=== PATIENT | male | born 1995 | race Hispanic/Latino ===

== ENCOUNTER 2019-03-09 22:33 | Emergency (ER) | payer BC ==
--- NOTE | 2019-03-09 23:39 | ER ---
Nurse's Notes [facility] Name: William Herrera Age: 23 yrs Sex: Male : 1995 Arrival Date: 03/09/2019 Time: 22:37 Bed 28 Private MD: Diagnosis: Low back pain Presentation: 03/09 22:42 Presenting complaint: Patient states: Lower back pain for at least a month, hurts to la1 sit. Denies sexual dysfunction, loss of continence. Transition of care: patient was not received from another setting of care. Onset of symptoms was March 09, 2019. Risk Assessment: Do you want to hurt yourself or someone else? Patient reports no desire to harm self or others. Initial Sepsis Screen: Does the patient meet any 2 criteria? No. Patient's initial sepsis screen is negative. Does the patient have a suspected source of infection? No. Patient's initial sepsis screen is negative. Care prior to arrival: None. 22:42 Method Of Arrival: Ambulatory la1 22:42 Acuity: RENETTA 5 la1 Historical: - Allergies: 22:43 No Known Allergies; la1 - PMHx: 22:43 None; la1 - Immunization history:: Adult Immunizations up to date. - Social history:: Smoking status: Patient/guardian denies using tobacco. - Ebola Screening: : No symptoms or risks identified at this time. Screenin:22 Abuse screen: none noted. Nutritional screening: No deficits noted. Tuberculosis jl3 screening: No symptoms or risk factors identified. Fall Risk None identified. Assessment: 23:12 General: Appears in no apparent distress. Behavior is calm. General: Pt states lower jl3 back back >1 month. 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 Taking Ibuprofen 800mg for pain, last at 1600 today (02/27/19). Pain: Complains of pain in back Quality of pain is described as aching. Neuro: No deficits noted. Cardiovascular: No deficits noted. Respiratory: No deficits noted. GI: No deficits noted. : No deficits noted. EENT: No deficits noted. Derm: No deficits noted. Musculoskeletal: Reports pain in back since > 1 month. 23:55 Reassessment: No further c/o pain. jl3 Vital Signs: 22:45 BP 158 / 90; Pulse 87; Resp 16; Temp 97.3; Pulse Ox 99% on R/A; Weight 156.49 kg; la1 Height 6 ft. 4 in. (193.04 cm); Pain 8/10; 23:59 BP 142 / 82; Pulse 80; Resp 16; Pulse Ox 100% ; Pain 3/10; jl3 22:45 Body Mass Index 41.99 (156.49 kg, 193.04 cm) la1 ED Course: 22:37 Patient arrived in ED. mr 22:43 Triage completed. la1 22:43 Arm band placed on right wrist. la1 22:58 Oc Almanzar, RN is Primary Nurse. jl3 23:04 Leno Brennan MD is Attending Physician. kdr 23:22 Patient has correct armband on for positive identification. jl3 23:57 No provider procedures requiring assistance completed. Patient did not have IV access jl3 during this emergency room visit. Administered Medications: 23:53 Drug: Flexeril 10 mg Route: PO; jl3 23:58 Follow up: Response: No adverse reaction jl3 23:53 Drug: Shelly 10 mg-325 mg 1 tabs Route: PO; jl3 23:58 Follow up: Response: No adverse reaction jl3 23:53 Drug: predniSONE 60 mg Route: PO; jl3 23:58 Follow up: Response: No adverse reaction jl3 23:53 Drug: Pepcid 20 mg Route: PO; jl3 23:58 Follow up: Response: No adverse reaction jl3 Outcome: 23:38 Discharge ordered by . kdr 23:57 Discharged to home ambulatory. jl3 23:57 Condition: good 23:57 Discharge instructions given to patient, family, Prescriptions given X 4. 23:59 Patient left the ED. jl3 Signatures: Leno Brennan MD MD kdr Rivera, Mary Kushal Velazquez, RN RN la1 Oc Almanzar, THOMAS RN jl3
--- NOTE | 2019-03-09 23:39 | EDPHYS ---
Physician Documentation [facility] Name: William Herrera Age: 23 yrs Sex: Male : 1995 Arrival Date: 03/09/2019 Time: 22:37 Bed 28 Private MD: ED Physician Leno Brennan HPI: 03/10 02:05 This 23 yrs old Male presents to ER via Ambulatory with complaints of Low Back kdr Pain. 02:05 The patient presents with pain that is chronic, with no known mechanism of injury, and kdr decreased range of motion. The symptoms are located in the low back. The pain radiates to the left hamstring and posterior aspect of left knee. The problem was sustained from unknown cause. Onset: The symptoms/episode began/occurred gradually, 1 month(s) ago. Modifying factors: The patient symptoms are alleviated by nothing, the patient symptoms are aggravated by standing, walking. Associated signs and symptoms: The patient has no apparent associated signs or symptoms. Severity of symptoms: At their worst the symptoms were moderate, in the emergency department the symptoms are unchanged. The patient has not experienced similar symptoms in the past. The patient has not recently seen a physician. Historical: - Allergies: 03/09 22:43 No Known Allergies; la1 - PMHx: 22:43 None; la1 - Immunization history:: Adult Immunizations up to date. - Social history:: Smoking status: Patient/guardian denies using tobacco. - Ebola Screening: : No symptoms or risks identified at this time. ROS: 03/10 02:05 Constitutional: Negative for fever, chills, and weight loss, Eyes: Negative for injury, kdr pain, redness, and discharge, ENT: Negative for injury, pain, and discharge, Neck: Negative for injury, pain, and swelling, Cardiovascular: Negative for chest pain, palpitations, and edema, Respiratory: Negative for shortness of breath, cough, wheezing, and pleuritic chest pain, Abdomen/GI: Negative for abdominal pain, nausea, vomiting, diarrhea, and constipation, : Negative for injury, bleeding, discharge, and swelling, MS/Extremity: Negative for injury and deformity, Skin: Negative for injury, rash, and discoloration, Neuro: Negative for headache, weakness, numbness, tingling, and seizure activity. Psych: Negative for depression, anxiety, suicide ideation, homicidal ideation, and hallucinations, Allergy/Immunology: Negative for hives, rash, and allergies, Endocrine: Negative for neck swelling, polydipsia, polyuria, polyphagia, and marked weight changes, Hematologic/Lymphatic: Negative for swollen nodes, abnormal bleeding, and unusual bruising. Back: Positive for pain at rest, pain with movement, of the lumbar area and left low back. Exam: 02:05 Constitutional: This is a well developed, well nourished patient who is awake, alert, kdr and in no acute distress. Back: No spinal tenderness. No costovertebral tenderness. Full range of motion. 02:05 Back: pain, that is mild, of the lumbar area and left low back. Vital Signs: 03/09 22:45 BP 158 / 90; Pulse 87; Resp 16; Temp 97.3; Pulse Ox 99% on R/A; Weight 156.49 kg; la1 Height 6 ft. 4 in. (193.04 cm); Pain 8/10; 23:59 BP 142 / 82; Pulse 80; Resp 16; Pulse Ox 100% ; Pain 3/10; jl3 22:45 Body Mass Index 41.99 (156.49 kg, 193.04 cm) la1 MDM: 23:38 Patient medically screened. kdr 03/10 02:07 Data reviewed: vital signs, nurses notes, lab test result(s), radiologic studies. kdr Counseling: I had a detailed discussion with the patient and/or guardian regarding: the historical points, exam findings, and any diagnostic results supporting the discharge/admit diagnosis, radiology results. Administered Medications: 03/09 23:53 Drug: Flexeril 10 mg Route: PO; jl3 23:58 Follow up: Response: No adverse reaction jl3 23:53 Drug: [place] 10 mg-325 mg 1 tabs Route: PO; jl3 23:58 Follow up: Response: No adverse reaction jl3 23:53 Drug: predniSONE 60 mg Route: PO; jl3 23:58 Follow up: Response: No adverse reaction jl3 23:53 Drug: Pepcid 20 mg Route: PO; jl3 23:58 Follow up: Response: No adverse reaction jl3 Disposition: 03/09/19 23:38 Discharged to Home. Impression: Low back pain. - Condition is Stable. - Discharge Instructions: Musculoskeletal Pain, Back Pain, Adult, [id number], Back Exercises, [id number]. - Prescriptions for Ibuprofen 800 mg Oral Tablet - take 1 tablet by ORAL route every 8 hours As needed take with food; 30 tablet. Pepcid 20 mg Oral Tablet - take 1 tablet by ORAL route every 12 hours for 5 days; 10 tablet. Robaxin 500 mg Oral Tablet - take 2 tablet by ORAL route every 6 hours As needed; 40 tablet. Medrol (Bertin) 4 mg Oral Tablets, Dose Pack - take 1 tablet by ORAL route as directed - follow package instructions; 1 packet. - Medication Reconciliation Form, Thank You Letter form. - Follow up: Private Physician; When: 2 - 3 days; Reason: If symptoms return, Further diagnostic work-up, Recheck today's complaints, Continuance of care, Re-evaluation by your physician. - Problem is an ongoing problem. - Symptoms are unchanged. Signatures: Leno Brennan MD MD kdr Kushal Velazquez RN RN la1 Oc Almanzar RN RN jl3 Corrections: (The following items were deleted from the chart) 23:59 23:38 03/09/2019 23:38 Discharged to Home. Impression: Low back pain. Condition is jl3 Stable. Forms are Medication Reconciliation Form, Thank You Letter, Antibiotic Education, Prescription Opioid Use. Follow up: Private Physician; When: 2 - 3 days; Reason: If symptoms return, Further diagnostic work-up, Recheck today's complaints, Continuance of care, Re-evaluation by your physician. Problem is an ongoing problem. Symptoms are unchanged. kdr
[2019-03-09] MEDS ORDERED: CYCLOBENZAPRINE 10 MG TAB ONE (23:54)
[2019-03-09] MEDS ORDERED: predniSONE 20 MG TAB ONE (23:55)
[2019-03-09] MEDS ORDERED: HYDROCODONE/APAP 10/325 TAB ONE (23:55)
[2019-03-09] MEDS ORDERED: FAMOTIDINE 20 MG TAB ONE (23:55)
== END 2019-03-09 23:59 | disposition home or self-care (01) ==
LOC: ER 22:33
DX: M54.5 Low back pain (principal)
CPT/HCPCS: 99283; J7512